=== PATIENT | female | born 1970 | race African-American/Black ===

== ENCOUNTER 2017-02-17 07:23 | Outpatient (CLI) | payer OTHER, BC | END 2017-02-17 07:24 | disposition home or self-care (01) | LOC: BICMAMMO 07:23 | PROVIDERS: ATTEND Obstetrics & Gynecology | DX: Z12.31 Encounter for screening mammogram for malignant neoplasm of breast (principal); Z80.3 Family history of malignant neoplasm of breast | CPT/HCPCS: 77063; 77067; G0202 ==

== ENCOUNTER → 2017-02-23 | Day surgery (SDC) | payer OTHER, BC ==
[~2017-02-23] MED LIST: Dexamethasone 20 MG/5 ML VIAL ONE; Fentanyl 100 MCG/2 ML VIAL ONE; Fentanyl 250 MCG/5 ML VIAL ONE; Hydrocodone-Acetamin 15 ML UDCUP ONE; Lidocaine 1% PF 5 ML VIAL ONE; Ondansetron HCl/PF 4 MG/2 ML Vial ONE; Propofol 200 MG/20 ML VIAL ONE; Propofol 500 MG/50 ML VIAL ONE; Succinylcholine Chloride 20 MG/ML 10 ml SYRINGE FS ONE
[2017-02-23 07:25] LABS: Hematocrit 32.8 % (36.0-47.0)
--- NOTE | 2017-02-23 09:43 | OP ---
DATE OF PROCEDURE: 02/23/2017 SURGEON: Dr. Arnav Ndiaye PREOPERATIVE DIAGNOSES: Chronic tonsillitis, and obstructive tonsillar hypertrophy. POSTOPERATIVE DIAGNOSES: Chronic tonsillitis and obstructive tonsillar hypertrophy. PROCEDURE PERFORMED: Tonsillectomy over 12 years of age. FINDINGS: Very cryptic tonsils that were inflamed and almost necrotic appearing with hypervascular b lood vessels. PROCEDURE IN DETAIL: After consent was obtained, the patient was identified, brought to the operating room, and placed on the operating table in the supine position. General endotracheal anesthesia and intravenous access wa s obtained and we proceeded with positioning the patient for oropharyngeal surgery. Oropharyngeal exp osure was obtained with a Etta-Roger mouth gag after a head drape was placed and secured with a towe l clip. The Etta-Roger mouth gag was then suspended from the Landrum tray and palatal elevation was ac hieved with a red rubber catheter. We first addressed the adenoid bed and visualized it under direct mirror visualization with a dental mirror. Under direct visualization, the adenoids were removed wi th multiple passes of the adenoid curet. The Hugo-Synephrine saturated gauze sponge was then placed i n the nasopharynx and an appropriate period for hemostasis was observed while the nasal pack was in p lace. We proceeded with a tonsillectomy. The right tonsil was addressed first. We used a curved Al lis to grasp the tonsil and retract it medially as an anterior pillar incision was made with a #12 bl sheri. The retrotonsillar fascial plane was then established and blunt dissection was performed with t he suction cautery. Blood vessels were anticipated, identified, and cauterized as they were encounte red. Ultimately, dissection was carried to the posterior tonsillar pillar mucosa which was incised h emostatically, as well as the base of tongue connection. The tonsil was then passed off as a specime n and bleeding points within the tonsillar bed were cauterized under direct visualization. We subseq uently turned our attention to the contralateral side, where using a similar technique, a near identi danni procedure was performed. Again, the tonsil was grasped and retracted medially with a curved Kiko s as an anterior pillar incision was made with a #12 blade. The retrotonsillar fascial plane was esta blished and while the anterior pillar was retracted medially, the hemostatic blunt dissection of the tonsil with a suction cautery was performed with blood vessels anticipated, identified, and cauterize d as they were encountered. Again, dissection continued to the base of tongue and posterior tonsilla r pillar mucosa which was incised in a hemostatic fashion. The tonsillar beds were then carefully in spected and bleeding points were identified and cauterized with a suction cautery. We then removed t he nasopharyngeal pack, suctioned the residual blood and the adenoid bed was then cauterized under di rect mirror visualization and residual adenoid tissue was vaporized at this time. After this portion of the procedure, hemostasis was completely obtained. The patient's nasal cavity, nasopharyngeal, a nd oral cavity were copiously irrigated with iced saline and subsequently suctioned. We then used th e red rubber catheter to suction the gastric contents and the patient was subsequently aroused, awake willa, and extubated without difficulty and transported to the recovery room in stable condition. Ther e were no complications.
== END ==
LOC: SDC 06:45
PROVIDERS: ATTEND Specialist
PROC: 0CTPXZZ Resection of Tonsils, External Approach (ICD-10-PCS; principal; 2017-02-23)
PROC: 0CTQ0ZZ Resection of Adenoids, Open Approach (ICD-10-PCS; principal; 2017-02-23)
DX: J35.1 Hypertrophy of tonsils (principal)
CPT/HCPCS: 36415; 85014; 88304; 96374; J1100; J2001; J2405; J2704; J3010

== ENCOUNTER 2017-08-26 10:54 | Emergency (ER) | payer BC, OTHER ==
[2017-08-26 11:23] LABS: Bilirubin Negative (Negative); Blood, Urine Negative (Negative); Clarity CLOUDY (Clear); Glucose, Urine (Dipstick) Negative (Negative); Leukocyte Negative (Negative); Nitrite Negative (Negative); Protein, Urine (Dipstick) Negative (Neg-Trace); Specific Gravity, Urine 1.023 (1.002-1.036); Urobilinogen 0.2 mg/dL (0.2-1.0)
[2017-08-26 11:24] LABS: Pregnancy Test - Urine (BHCG) Negative (Negative); Pregu Control Background? CLEAR/WHITE (CLR/WHITE); Pregu Control Bar Appear? YES (CONTROL BAR); Specific Gravity 1.023 (1.002-1.036)
[2017-08-26 11:39] LABS: #Eosinphils 0.2 thou/uL (0.0-0.7); #Lymphocytes 2.3 thou/uL (1.20-3.40); #Monocytes 0.6 thou/uL (0.11-0.59); #Neutrophils 4.7 thou/uL (1.40-6.50); %Basophils 0.6 % (0.0-1.0); %Eosinophils 3.1 % (0.0-10.0); %Lymphocytes 29.2 % (21.0-51.0); %Monocytes 7.2 % (0.0-10.0); %Neutrophils 59.9 % (42.0-75.0); Hemoglobin 9.7 g/dL (12.0-16.0); Mean Platelet Volume 9.2 fL (7.4-10.4); Platelet Count 289 thou/uL (130-400); RBC Distribution Width 17.9 % (11.5-14.5); White Blood Cell (WBC) Count 7.9 thou/uL (4.8-10.8)
[2017-08-26 11:59] LABS: ALT (SGPT) 8 U/L (8-55); AST (SGOT) 11 U/L (5-34); Albumin 3.5 g/dL (3.5-5.0); Alkaline Phosphatase 59 U/L (40-150); Anion Gap 12 mmol/L (10-20); BUN (Urea Nitrogen) 14 mg/dL (7.0-18.7); Bilirubin, Total 0.4 mg/dL (0.2-1.2); Calc. Creatinine Clearance 0 mL/min (70-130); Calcium 8.9 mg/dL (7.8-10.44); Carbon Dioxide 23 mmol/L (22-29); Chloride 106 mmol/L (98-107); Estimated GFR-MDRD 66; Globulin 4.3 g/dL (2.4-3.5); Glucose 107 mg/dL (70-105); Protein, Total 7.8 g/dL (6.0-8.3); Sodium 137 mmol/L (136-145)
[2017-08-26 12:05] LABS: Anisocytosis SLIGHT = 6-15 cells (100X) (0-5/hpf); MDiff Complete? YES; Mean Corpuscular Hemoglobin 23.8 pg (27.0-31.0); Mean Corpuscular Volume 74.2 fL (78.0-98.0)
[2017-08-26] MEDS ORDERED: Ketorolac Tromethamine 60 MG/2 ML VIAL ONE (13:44)
== END 2017-08-26 14:10 | disposition home or self-care (01) ==
LOC: ERS 10:54
DX: S39.012A Strain of muscle, fascia and tendon of lower back, initial encounter (principal); S29.012A Strain of muscle and tendon of back wall of thorax, initial encounter; X58.XXXA Exposure to other specified factors, initial encounter
CPT/HCPCS: 36415; 80053; 81003; 81025; 85025; 96372; J1885

== ENCOUNTER 2018-02-23 07:54 | Outpatient (CLI) | payer BC | END 2018-02-23 07:55 | disposition home or self-care (01) | LOC: BICMAMMO 07:54 | PROVIDERS: ATTEND Family Medicine | DX: Z12.31 Encounter for screening mammogram for malignant neoplasm of breast (principal); Z80.3 Family history of malignant neoplasm of breast | CPT/HCPCS: 77063; 77067 ==

== ENCOUNTER 2018-03-23 08:41 | Outpatient (CLI) | payer BC ==
--- NOTE | 2018-03-23 11:10 | RAD ---
DOUBLE CONTRAST UPPER GI: INDICATIONS: GERD. FINDINGS: Utilization of effervescent crystals, liquid barium, and a 12.5 mm barium tablet performed with real- time fluoroscopy. There is appropriate contrast passage of the liquid barium through the esophagus a nd into the stomach without abnormal holdup constricting lesion or intrinsic mass effect. The gastri c lumen is free from mass effect. There is passage of contrast into normal caliber proximal small adeline wel with an appropriate mucosal pattern. The 12.5 mm barium tablet freely passed the esophagus and i nto the stomach. No gastroesophageal reflux of significance is visualized under real-time fluoroscop y, and there is no evidence of a hiatal hernia. RADIATION EXPOSURE DATA: Intermittent fluoroscopy 0.4 minutes. 7.2 Gy per cm2. IMPRESSION: Unremarkable double contrast upper gastrointestinal examination. POS: [facility]
== END 2018-03-23 08:42 | disposition home or self-care (01) ==
LOC: RAD 08:41
PROVIDERS: ATTEND Surgery
DX: K21.9 Gastro-esophageal reflux disease without esophagitis (principal)
CPT/HCPCS: 74247

== ENCOUNTER 2018-04-12 16:16 | Emergency (ER) | payer BC ==
[~2018-04-12 16:16] MED LIST changes: -Dexamethasone 20 MG/5 ML VIAL ONE; -Fentanyl 100 MCG/2 ML VIAL ONE; -Fentanyl 250 MCG/5 ML VIAL ONE; -Hydrocodone-Acetamin 15 ML UDCUP ONE; +ISOVUE-370 76%-LOCM 1 ML ONE; -Lidocaine 1% PF 5 ML VIAL ONE; -Ondansetron HCl/PF 4 MG/2 ML Vial ONE; -Propofol 200 MG/20 ML VIAL ONE; -Propofol 500 MG/50 ML VIAL ONE; -Succinylcholine Chloride 20 MG/ML 10 ml SYRINGE FS ONE
[2018-04-12] MEDS ORDERED: Ketorolac Tromethamine 30 MG/ML VIAL ONE (17:39)
--- NOTE | 2018-04-12 17:42 | RAD ---
AP VIEW CHEST: Date: 04/12/18 HISTORY: Cough. FINDINGS: AP view of chest obtained and demonstrates mild cardiomegaly. Pulmonary vascular congestion seen. No evidence of effusions, pneumonia, or pneumothorax seen. IMPRESSION: Cardiomegaly and pulmonary vascular congestion. Otherwise unremarkable AP view chest. POS: [facility]
[2018-04-12 17:49] LABS: #Eosinphils 0.3 thou/uL (0.0-0.7); #Lymphocytes 1.8 thou/uL (1.20-3.40); #Monocytes 0.6 thou/uL (0.11-0.59); #Neutrophils 4.4 thou/uL (1.40-6.50); %Basophils 0.4 % (0.0-1.0); %Eosinophils 3.7 % (0.0-10.0); %Lymphocytes 25.4 % (21.0-51.0); %Monocytes 8.3 % (0.0-10.0); %Neutrophils 62.2 % (42.0-75.0); Hemoglobin 9.3 g/dL (12.0-16.0); Mean Corpuscular HGB CONC 30.6 g/dL (32.0-36.0); Mean Corpuscular Hemoglobin 22.6 pg (27.0-31.0); Mean Corpuscular Volume 73.7 fL (78.0-98.0); Mean Platelet Volume 10.6 fL (7.4-10.4); Platelet Count 317 thou/uL (130-400); RBC Distribution Width 17.9 % (11.5-14.5); White Blood Cell (WBC) Count 7.1 thou/uL (4.8-10.8)
[2018-04-12 18:10] LABS: Bilirubin Negative (Negative); Blood, Urine Large (Negative); Clarity CLEAR (Clear); Glucose, Urine (Dipstick) Negative (Negative); Leukocyte Negative (Negative); Nitrite Negative (Negative); Protein, Urine (Dipstick) Negative (Neg-Trace); Specific Gravity, Urine 1.025 (1.002-1.036); Urobilinogen 0.2 mg/dL (0.2-1.0)
[2018-04-12 18:11] LABS: Digoxin Less than 0.15 ng/mL (0.8-2.0)
[2018-04-12 18:12] LABS: Bacteria/HPF None Seen HPF (None Seen); Hyaline Casts/LPF 4-6 HYALINE CAST LPF (0-3 Hyaline); Pathc Cast-AUWi Flag 0.58 (0-2.49); RBC/HPF GREATER THAN 50-TNTC HPF (0-3); Squamous Epithelial 0-3 HPF (0-3); WBC/HPF 0-3 HPF (0-3)
[2018-04-12 18:16] LABS: ALT (SGPT) 7 U/L (8-55); AST (SGOT) 20 U/L (5-34); Albumin 3.5 g/dL (3.5-5.0); Alkaline Phosphatase 55 U/L (40-150); Anion Gap 15 mmol/L (10-20); BUN (Urea Nitrogen) 13 mg/dL (7.0-18.7); Bilirubin, Total 0.2 mg/dL (0.2-1.2); Calc. Creatinine Clearance 0 mL/min (70-130); Calcium 8.5 mg/dL (7.8-10.44); Carbon Dioxide 23 mmol/L (22-29); Chloride 107 mmol/L (98-107); Estimated GFR-MDRD Greater than 90; Glucose 89 mg/dL (70-105); Potassium 4.5 mmol/L (3.5-5.1); Protein, Total 7.5 g/dL (6.0-8.3); Sodium 140 mmol/L (136-145)
--- NOTE | 2018-04-12 18:40 | CT ---
CONTRAST ENHANCED CTA CHEST 04/12/18 HISTORY: Productive cough. Chest pain for two days. Contrast enhanced CTA of the chest is performed. 2D and 3D reconstructed images performed on an [employer] 3D workstation. Images demonstrate some minimal air space opacities throughout both lungs in a patchy manner. This do es not appear to be central. Some cardiomegaly is noted. No evidence of pleural or pericardial effusi on seen. Small areas of focal calcifications seen in the coronary arteries. No evidence of filling defects seen in the pulmonary arteries to suggest pulmonary emboli. The aorta is unremarkable. IMPRESSION: No evidence of pulmonary emboli seen. POS: [facility]
== END 2018-04-12 19:00 | disposition home or self-care (01) ==
LOC: ERS 16:16
DX: R07.81 Pleurodynia (principal); R05 Cough; Z79.899 Other long term (current) drug therapy
CPT/HCPCS: 71045; 71275; 80053; 80162; 81003; 81015; 84484; 85025; 85379; 93005; 96374; J1885; Q9966

== ENCOUNTER 2018-05-25 13:51 | Outpatient (CLI) | payer BC ==
--- NOTE | 2018-05-25 16:52 | CT ---
NONCONTRAST CT THORAX: Date: 05/25/18 HISTORY: Upper back pain. FINDINGS: There is a calcified granuloma in the medial right upper lobe with prominent calcified right hilar ly mph nodes and calcified granuloma also at the right lung base. The limited visualized lungs are other esteban clear. The paravertebral soft tissues have a normal nonenhanced CT appearance. Vertebral body heights are within normal limits. No fracture or subluxation is seen involving the tho racic spine. There are multiple bridging osteophytes seen extending from the T5-6 to the T9-10 levels. There are mild facet degenerative changes present at the T7-8 level resulting in minimal mass effect on the left posterolateral aspect of the subarachnoid space. The neural foramina are patent at this l evel. Similar findings are also seen at the T8-9 level with greater degree of facet hypertrophic paris ges at the T9-10 level resulting in mild narrowing of the central spinal canal due to the prominent f acet hypertrophic changes which encroaches on the spinal cord at these levels. Neural foramina do svitlana ear patent. Similar findings are present bilaterally at the T10-11 level, resulting in generalized na rrowing of the central spinal canal, as well as mild to moderate right-sided neural foraminal narrowi ng due to the bony encroachment. No obvious disc bulge or disc herniation is appreciated. IMPRESSION: 1. Degenerative changes in the lower thoracic spine with prominent bridging anterior osteophytes ext ending from T5 to T10 level. 2. No fracture or subluxation involving the thoracic spine. 3. Evidence of prior granulomatous disease. POS: [facility]
== END 2018-05-25 13:52 | disposition home or self-care (01) ==
LOC: TBSIIMAG 13:51
PROVIDERS: ATTEND Neurological Surgery
DX: M54.6 Pain in thoracic spine (principal); M47.814 Spondylosis without myelopathy or radiculopathy, thoracic region; D71 Functional disorders of polymorphonuclear neutrophils
CPT/HCPCS: 72128

== ENCOUNTER 2018-09-21 19:30 | Outpatient (CLI) | payer BC | END 2018-09-21 19:31 | disposition home or self-care (01) | LOC: SLEEPLAB 19:30 | PROVIDERS: ATTEND Surgery | DX: G47.33 Obstructive sleep apnea (adult) (pediatric) (principal); E66.9 Obesity, unspecified; Z68.43 Body mass index [BMI] 50.0-59.9, adult | CPT/HCPCS: 95811 ==

== ENCOUNTER 2019-02-15 10:59 | Outpatient (CLI) | payer BC ==
--- NOTE | 2019-02-15 12:24 | MMO ---
Bilateral MAMMO Bilat Screen [facility]. CLINICAL HISTORY: Patient is 49 years old and is seen for screening. The patient has the following family history of breast cancer: maternal grandmother, malignant (generic) and maternal aunt, malignant (generic). The patient has no personal history of cancer. VIEWS: The views performed were: bilateral craniocaudal with tomosynthesis and bilateral mediolateral oblique with tomosynthesis. FILMS COMPARED: The present examination has been compared to prior imaging studies performed at [facility] on 01/22/2016, 02/17/2017 and 02/23/2018, and at [facility] on 01/21/2015. This study has been interpreted with the assistance of computer-aided detection. MAMMOGRAM FINDINGS: There are scattered fibroglandular densities. There are no suspicious masses, suspicious calcifications, or new areas of architectural distortion. IMPRESSION: THERE IS NO MAMMOGRAPHIC EVIDENCE OF MALIGNANCY. A ROUTINE FOLLOW-UP MAMMOGRAM IN 1 YEAR IS RECOMMENDED. THE RESULTS OF THIS EXAM WERE SENT TO THE PATIENT. ACR BI-RADS Category 1 - Negative MAMMOGRAPHY NOTE: 1. A negative mammogram report should not delay a biopsy if a dominant of clinically suspicious mass is present. 2. Approximately 10% to 15% of breast cancers are not detected by mammography. 3. Adenosis and dense breasts may obscure an underlying neoplasm. Reported by: BREA ALARCON MD Electonically Signed: [id number]
== END 2019-02-15 11:00 | disposition home or self-care (01) ==
LOC: BICMAMMO 10:59
PROVIDERS: ATTEND Obstetrics & Gynecology
DX: Z12.31 Encounter for screening mammogram for malignant neoplasm of breast (principal); Z80.3 Family history of malignant neoplasm of breast
CPT/HCPCS: 77063; 77067